=== PATIENT | female | born 1980 | race African-American/Black ===

== ENCOUNTER 2017-07-26 15:40 | Emergency (ER) | payer MEDICAID ==
--- NOTE | 2017-07-26 15:56 | EDM.PDOC ---
ED HPI GENERAL MEDICAL PROBLEM - General Chief Complaint: Medication Administration Stated Complaint: NOSE BLEED/HIGH PRESSURE Time Seen by Provider: 07/26/17 15:55 Source of Information: Reports: Patient History Limitations: Reports: No Limitations - History of Present Illness INITIAL COMMENTS - FREE TEXT/NARRATIVE: 37-year-old female presents to the ED for assessment of high blood pressure which she believes is precipitating recurrent headaches and nosebleeds. States she just got insurance and wants to have a refill on her hydrochlorothiazide 12.5 mg once daily which he uses for blood pressure control. Her blood pressure however is elevated at 140 8/112. Reading has been mostly from the left naris. Headache is bitemporal pounding and throbbing. She states she's been off her medication for about a month. Last time she was to the doctor she was advised to purchase a second blood pressure medication but was unable to do so due to financial barriers. She's not sure what this was. But obviously her blood pressure was not controlled well along with hydrochlorothiazide 12.5 mg daily. Onset: Unknown/Unsure (Has been for several days and weeks.) Duration: Week(s): Location: Reports: Head (Chronic bitemporal throbbing headaches.), Other ( Intermittent left nosebleed.) Quality: Reports: Ache Severity: Moderate Improves with: Reports: Cold Therapy, Rest Worsens with: Reports: Movement Context: Denies: Activity, Exercise, Lifting, Sick Contact, Trauma, Other Associated Symptoms: Reports: Headaches. 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) Frontal Headache Pain Score (Numeric/FACES): 4 - Related Data Allergies Allergy/AdvReac Type Severity Reaction Status Date / Time No Known Allergies Allergy Verified 07/26/17 15:49 Home Meds: Home Meds Hydrochlorothiazide 12.5 mg PO DAILY 07/26/17 [History] Lisinopril/Hydrochlorothiazide [Lisinopril-Hctz 20-25 mg Tab] 1 each PO DAILY # 30 tablet 07/26/17 [Rx] Past Medical History Cardiovascular History: Reports: Hypertension Hematologic History: Reports: Anemia, Blood Transfusion(s) - Past Surgical History GI Surgical History: Reports: Colonoscopy Social & Family History - Tobacco Use Smoking Status *Q: Current Some Day Smoker Years of Tobacco use: 30 Packs/Tins Daily: 0.3 Used Tobacco, but Quit: No Second Hand Smoke Exposure: No - Caffeine Use Caffeine Use: Reports: None - Recreational Drug Use Recreational Drug Use: No - Living Situation & Occupation Living situation: Reports: Single Occupation: Unemployed ED ROS GENERAL - Review of Systems Review Of Systems: See Below Constitutional: Denies: Fever, Chills, Malaise, Weakness, Decreased Appetite, Weight Loss HEENT: Reports: No Symptoms Respiratory: Reports: No Symptoms Cardiovascular: Reports: Blood Pressure Problem (Has had elevated blood pressure for several years.) Endocrine: Reports: No Symptoms ( It runs in her family.) GI/Abdominal: Reports: No Symptoms : Reports: No Symptoms Musculoskeletal: Reports: No Symptoms, Muscle Pain Neurological: Reports: No Symptoms ED EXAM, GENERAL - Physical Exam Exam: See Below Exam Limited By: No Limitations General Appearance: Alert, WD/WN, Mild Distress (Currently has quite a bad headache and bitemporal aspect of her scalp.) Eye Exam: Bilateral Eye: Normal Fundi (No flame hemorrhages. No AV nicking.) Respiratory/Chest: No Respiratory Distress, Lungs Clear, Normal Breath Sounds, No Accessory Muscle Use Cardiovascular: Normal Peripheral Pulses, Regular Rate, Rhythm, No Edema, No Gallop, No Murmur, No Rub Peripheral Pulses: 3+: Posterior Tibial (L), Posterior Tibial (R), Dorsalis Pedis (L), Dorsalis Pedis (R) Extremities: Normal Inspection, Normal Range of Motion, Non-Tender, No Pedal Edema Neurological: Alert, Oriented, CN II-XII Intact, Normal Cognition, Normal Gait Psychiatric: Normal Affect, Normal Mood Skin Exam: Warm, Dry, Intact, Normal Color, No Rash Course - Vital Signs Last Recorded V/S: Last Vital Signs Temp 37.1 C 07/26/17 15:47 Pulse 87 07/26/17 15:47 Resp 18 07/26/17 15:47 BP 148/112 H 07/26/17 15:47 Pulse Ox 100 07/26/17 15:47 - Radiology Interpretation Free Text/Narrative:: 37-year-old female of -[place] descent presents to the ED for review of elevated blood pressure and having been off her medication for over a month. She says suffering bitemporal throbbing headaches as well as intermittent nosebleeds which she believes is due to uncontrolled blood pressure. BP on arrival was 148/112. Her to rest it came down to 148/96. She does not have the finances to warrant a full investigation by lab work ECG etc. Therefore decision made to place her on lisinopril 20 mg with hydrochlorothiazide 12.5 mg as a combination tablet once daily. I spoke with her personal care physician in 2 weeks time for kidney evaluation. Also blood pressure review. Regarding her nose is been some bleeding from the inner aspect of the left nasal alae. This is very anterior. Suggest Polysporin ointment to this area by way of Q-tip at bedtime for the next week. Departure - Departure Time of Disposition: 16:30 Disposition: Home, Self-Care 01 Condition: Fair Clinical Impression: Uncontrolled hypertension, Epistaxis not due to trauma Chronic headaches Qualifiers: Headache type: unspecified - Discharge Information Prescriptions: Lisinopril/Hydrochlorothiazide [Lisinopril-Hctz 20-25 mg Tab] 1 each PO DAILY # 30 tablet Referrals: PCP,None [Primary Care Provider] - Forms: ED Department Discharge Additional Instructions: Evaluation the emergency room today in regards to persistent daily headaches and intermittent nosebleeds looks like from the left naris primarily. Uncontrolled hypertension which is known about for rate of time but unable to obtain medications due to financial barriers. Her pressure is elevated at 142/ 96 today. Therefore advised starting combination lisinopril 20 mg with hydrochlorothiazide 12.5 mg tablet within it. This is a 1 tablet once a day which dropped her blood pressure about 10 points of the top and bottom over the next 2 weeks. Should follow up with a provider in 2 weeks time. Regards tosuggest use of Polysporin ointment which is [id number] and to be applied to the inner aspect of the nose at bedtime for the next week to stop any further bleeding. Continue Tylenol or aspirin as needed for headache relief until blood pressure comes under control.
== END 2017-07-26 16:43 | disposition home or self-care (01) ==
LOC: JD.ED 15:40
DX: I10 Essential (primary) hypertension (principal); R04.0 Epistaxis; F17.210 Nicotine dependence, cigarettes, uncomplicated; Z79.899 Other long term (current) drug therapy
CPT/HCPCS: 99283

== ENCOUNTER 2017-08-05 00:30 | Emergency (ER) | payer MEDICAID ==
--- NOTE | 2017-08-05 00:41 | EDM.PDOC ---
ED HPI GENERAL MEDICAL PROBLEM - General Chief Complaint: Headache Stated Complaint: MIN AMBULANCE Time Seen by Provider: 08/05/17 00:40 Source of Information: Reports: Patient History Limitations: Reports: No Limitations - History of Present Illness INITIAL COMMENTS - FREE TEXT/NARRATIVE: 37-year-old female of -[place] descent presents to the ED per ambulance with a severe bitemporal headache 2 days. Associated nausea but she's been eating quite well the last few days. She is known to have hypertension and recently started back on antihypertensive medication hydrochlorothiazide 12.5 with lisinopril 20 mg once daily. This was started last week again. She been off medication due to financial barriers. He is not sure how her blood pressure has been since starting the medications. She denies any cervical neck pain. Headache is behind both eyes consistent. Scribed is pounding and throbbing. No change in visual acuity. She has no change in her balance. She states she is prone to migraine headaches but hasn't had a bad one for quite some time. No recent falls or closed head injuries. Has been primarily on bed rest for the last 2 days. Onset: Gradual Onset Date: 08/03/17 Duration: Day(s): Location: Reports: Head Quality: Reports: Ache, Pressure, Throbbing Severity: Severe (8 out of 10.) Improves with: Reports: Rest (Dark room and not moving) Worsens with: Reports: Other, Movement Context: Denies: Activity (Bright lights), Exercise, Lifting, Sick Contact, Trauma, Other Associated Symptoms: Reports: Headaches. 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) Headache Pain Score (Numeric/FACES): 8 - Related Data Allergies Allergy/AdvReac Type Severity Reaction Status Date / Time No Known Allergies Allergy Verified 08/05/17 00:36 Home Meds: Home Meds Lisinopril/Hydrochlorothiazide [Lisinopril-Hctz 20-25 mg Tab] 1 each PO DAILY # 30 tablet 07/26/17 [Rx] Past Medical History Cardiovascular History: Reports: Hypertension Hematologic History: Reports: Anemia, Blood Transfusion(s) - Past Surgical History GI Surgical History: Reports: Colonoscopy Social & Family History - Tobacco Use Smoking Status *Q: Current Some Day Smoker Years of Tobacco use: 30 Packs/Tins Daily: 0.3 Used Tobacco, but Quit: No Second Hand Smoke Exposure: No - Caffeine Use Caffeine Use: Reports: None - Recreational Drug Use Recreational Drug Use: No - Living Situation & Occupation Living situation: Reports: Single Occupation: Unemployed ED ROS GENERAL - Review of Systems Review Of Systems: See Below Constitutional: Reports: Malaise, Weakness, Fatigue. Denies: Fever, Chills, Weight Loss HEENT: Denies: Glasses, Vertigo, Vision Change Respiratory: Reports: No Symptoms Cardiovascular: Reports: Blood Pressure Problem (Recently started back on antihypertensive medication hydrochlorothiazide 12.5 with). Denies: Chest Pain , Claudication ( lisinopril 20 mg daily.), Edema, Lightheadedness, Orthopnea Endocrine: Reports: No Symptoms GI/Abdominal: Reports: Nausea (Due to the intensity of the headache. No vomiting ). Denies: Vomiting : Reports: Frequency Musculoskeletal: Reports: Back Pain Skin: Reports: No Symptoms Neurological: Reports: Headache (See history of present illness.). Denies: Numbness, Paresthesia, Pre-Existing Deficit, Seizure, Syncope, Tingling, Tremors , Trouble Speaking, Difficulty Walking, Weakness Psychiatric: Reports: No Symptoms Hematologic/Lymphatic: Reports: No Symptoms - Physical Exam Exam: See Below Exam Limited By: No Limitations General Appearance: Alert, WD/WN, Moderate Distress Eye Exam: Bilateral Eye: PERRL Respiratory/Chest: No Respiratory Distress, Lungs Clear, Normal Breath Sounds, No Accessory Muscle Use Cardiovascular: Normal Peripheral Pulses, Regular Rate, Rhythm, No Edema, No Gallop, No Murmur GI/Abdominal: Normal Bowel Sounds, Soft, Non-Tender, No Organomegaly Neuro Exam (Abbreviated): Alert, Oriented, CN II-XII Intact, Normal Cognition, Normal Gait, Normal Reflexes, No Motor/Sensory Deficits DTR: 1+: Achilles (R), Achilles (L), 2+: Bicep (R), Bicep (L), Patella (R), Patella (L) Extremities: Normal Inspection, Normal Range of Motion, Non-Tender, No Pedal Edema Psychiatric: Normal Affect, Flat Affect Skin Exam: Warm, Dry, Intact, Normal Color, No Rash Course - Vital Signs Last Recorded V/S: Last Vital Signs Temp 37.3 C 08/05/17 00:37 Pulse 82 08/05/17 00:37 Resp 17 08/05/17 00:37 BP 177/103 H 08/05/17 00:37 Pulse Ox 98 08/05/17 00:37 - Orders/Labs/Meds Labs: Laboratory Tests 08/05/17 Range/Units 01:03 Sodium 140 (136-145) mEq/L Potassium 3.6 (3.5-5.1) mEq/L Chloride 102 (98-107) mEq/L Carbon Dioxide 25 (21-32) mEq/L Anion Gap 16.6 H (5-15) BUN 7 (7-18) mg/dL Creatinine 0.9 (0.55-1.02) mg/dL Est Cr Clr Drug Dosing 66.10 mL/min Estimated GFR (MDRD) > 60 (>60) mL/min BUN/Creatinine Ratio 7.8 L (14-18) Glucose 99 (74-106) mg/dL Calcium 9.9 (8.5-10.1) mg/dL Total Bilirubin 0.2 (0.2-1.0) mg/dL AST 26 (15-37) U/L ALT 28 (14-59) U/L Alkaline Phosphatase 59 (46-116) U/L Total Protein 8.0 (6.4-8.2) g/dl Albumin 4.3 (3.4-5.0) g/dl Globulin 3.7 gm/dL Albumin/Globulin Ratio 1.2 (1-2) Meds: Medications Discontinued Medications Generic Name Dose Route Start Last Admin Trade Name Aguilarq PRN Reason Stop Dose Admin Diphenhydramine HCl 25 mg 08/05/17 00:48 08/05/17 01:12 Benadryl IVPUSH 08/05/17 00:49 25 mg ONETIME ONE Administration Hydromorphone HCl 0.5 mg 08/05/17 00:48 08/05/17 01:13 Dilaudid IVPUSH 08/05/17 00:49 0.5 mg ONETIME ONE Administration Sodium Chloride 1,000 mls @ 999 mls/hr 08/05/17 01:00 08/05/17 01:06 Normal Saline IV 999 mls/hr ASDIRECTED JORDI Administration Ketorolac Tromethamine 30 mg 08/05/17 01:00 08/05/17 01:10 Toradol IVPUSH 30 mg ONETIME JORDI Administration Metoclopramide HCl 7.5 mg 08/05/17 00:48 08/05/17 01:07 Reglan IVPUSH 08/05/17 00:49 7.5 mg ONETIME ONE Administration - Radiology Interpretation Free Text/Narrative:: 37-year-old female presents to the ED per ambulance due to a severe bitemporal headache. She states she is prone to migraine headaches but hasn't had one for some time. She is known to have uncontrolled hypertension but recently started back on antidepressant medication a week ago with lisinopril 20 mg/12.5 mg of hydrochlorothiazide daily. Associated nausea with no vomiting. Cranial nerves II -12 are intact motor power and tone is normal finger to nose assessment normal no pronator drift. I neuro exam is normal. Plan IV normal saline at open. Given Reglan 7.5 mg IV Benadryl 25 mg IV, Dilaudid 0.5 mg IV and Toradol 30 mg IV for pain relief. - Re-Assessments/Exams Free Text/Narrative Re-Assessment/Exam: 08/05/17 02:27 patient reports headache is 90% better. BP is currently 117/80. Labs are back. Sodium is 140 with a potassium of 3.6. Chloride 102 with a bicarbonate of 25. Anion gap is 16.6. BUN was 7 with a creatinine of 0.9. Glucose 99 calcium 9.9. Liver function normal. At this time there is no sign that the lisinopril is causing any problems with her kidneys or potassium levels. Patient will be discharged to home. I believe a taxi will be called for her to get her home. Departure - Departure Time of Disposition: 02:31 Disposition: Home, Self-Care 01 Condition: Fair Clinical Impression: Migraine - Discharge Information Instructions: Migraine Headache, [id number] Referrals: PCP,None [Primary Care Provider] - Forms: ED Department Discharge Additional Instructions: Evaluation the emergency room tonight in regards to bilateral severe headache 48 hours. Associated nausea without vomiting. Neurological examination was normal. Basic labs were obtained due to recent starting on lisinopril/ hydrochlorothiazide and they were all found to be normal. There was no abnormalities identified within the kidneys or serum potassium levels. You are treated with intravenous Dilaudid 0.5 mg Reglan 7.5 mg, and Toradol 30 mg IV with Benadryl 25 mg IV for acute headache and nausea relief. Headache reportedly 90% better at the time of discharge. Suggest home to bed to sleep for the next 4-6 hours. Resume plenty of fluids such as Gatorade or Powerade when you awaken to maintain hydration and resume diet as able. Of note blood pressure at the time of discharge was normal at 118/73.
[2017-08-05] MEDS ORDERED: HYDROmorphone 0.5 MG/0.5 ML SYRINGE IVPUSH ONE (00:48)
[2017-08-05] MEDS ORDERED: Metoclopramide 10 MG/2 ML SDV IVPUSH ONE (00:48)
[2017-08-05] MEDS ORDERED: diphenhydrAMINE 50 MG/ML SDV IVPUSH ONE (00:48)
[2017-08-05] MEDS ORDERED: Ketorolac 30 MG/ML SDV IVPUSH SCH (01:00)
[2017-08-05] MEDS ORDERED: Sodium Chloride 0.9% 1,000 ML IV SCH (01:00)
== END 2017-08-05 02:54 | disposition home or self-care (01) ==
LOC: JD.ED 00:30
DX: G43.909 Migraine, unspecified, not intractable, without status migrainosus (principal); I10 Essential (primary) hypertension; F17.210 Nicotine dependence, cigarettes, uncomplicated; Z79.899 Other long term (current) drug therapy
CPT/HCPCS: 36415; 80053; 96361; 96374; 96375; 99284; J1170; J1200; J1885; J2765; J7040

== ENCOUNTER 2017-10-14 13:00 | Emergency (ER) | payer MEDICAID ==
[2017-10-14] MEDS ORDERED: Sodium Chloride 0.9% 1,000 ML IV ONE (13:34)
[2017-10-14] MEDS ORDERED: Sodium Chloride 0.9% 10 ML Syringe FLUSH PRN (13:35)
--- NOTE | 2017-10-14 13:47 | EDM.PDOC ---
ED HPI GENERAL MEDICAL PROBLEM - General Chief Complaint: Headache Stated Complaint: HEAD PAIN Time Seen by Provider: 10/14/17 13:17 Source of Information: Reports: Patient History Limitations: Reports: No Limitations - History of Present Illness INITIAL COMMENTS - FREE TEXT/NARRATIVE: 37-year-old female presents for evaluation and treatment of injuries following a fall last night. Patient reports that she was attempting have a bowel movement last night. She was on the toilet. She states that she does not recall exactly what happened but she passed out. Unclear how long she was out for. Not witnessed by anybody. She states when she woke there was a puddle of water on the floor. There was a bucket by full of water when she feels is likely the source of this. She does not remember much. She states when she came to she felt confused and felt her vision was blurry. Since the fall she has had a headache to the right posterior parietal area. She denies biting her tongue. She has no history of seizures. No nausea or vomiting since the incident. She has been feeling dizzy but has not had any syncopal episodes since last night. Patient reports she used to have frequent syncopal episodes. No etiology was ever found. She also reports she used to get frequent anemia of unknown cause. Required blood transfusions. LAst transfusion was about 16 months ago. This all occurred in [place] and [place]. Moved to [place] about 6 months ago. No PCP here. Patient reports she just finished her LMP. posterior pain Pain Score (Numeric/FACES): 6 - Related Data Allergies Allergy/AdvReac Type Severity Reaction Status Date / Time No Known Allergies Allergy Verified 10/14/17 13:16 Home Meds: Home Meds Lisinopril/Hydrochlorothiazide [Lisinopril-Hctz 20-25 mg Tab] 1 each PO DAILY # 30 tablet 07/26/17 [Rx] Past Medical History HEENT History: Reports: Epistaxis Cardiovascular History: Reports: Hypertension Neurological History: Reports: Other (See Below) Other Neuro History: syncopal episodes Hematologic History: Reports: Anemia, Blood Transfusion(s) Other Hematologic History: hx blood transfusions, states usually needs one yearly - Past Surgical History GI Surgical History: Reports: Colonoscopy Social & Family History - Family History Family Medical History: Noncontributory - Tobacco Use Years of Tobacco use: 10 Packs/Tins Daily: 0.1 - Caffeine Use Caffeine Use: Reports: None - Recreational Drug Use Recreational Drug Use: No - Living Situation & Occupation Living situation: Reports: Single Occupation: Unemployed ED ROS GENERAL - Review of Systems Review Of Systems: See Below Constitutional: Denies: Fever, Chills HEENT: Reports: Vision Change (blurry vision initally, now resolved), Other (no tongue biting ). Denies: Dental Pain, Nosebleed Respiratory: Denies: Cough GI/Abdominal: Reports: Constipation (h/o constipation and blood in stool; none recently, last BM yesterday), Hematochezia. Denies: Nausea, Vomiting Musculoskeletal: Denies: Neck Pain Neurological: Reports: Dizziness, Headache (none prior to fall), Syncope (none since episode last night). Denies: Numbness, Seizure, Tingling - Physical Exam Exam: See Below Exam Limited By: No Limitations General Appearance: Alert, WD/WN, No Apparent Distress, Thin Eye Exam: Bilateral Eye: EOMI, Normal Inspection, PERRL Ears: Normal External Exam Nose: Normal Inspection, No Blood Throat/Mouth: Normal Inspection, Normal Lips, Normal Teeth, Normal Oropharynx, Normal Voice, No Airway Compromise Head Exam: Atraumatic, Normocephalic Neck: Normal Inspection, Non-Tender, Full Range of Motion Respiratory/Chest: No Respiratory Distress, Lungs Clear, Normal Breath Sounds Cardiovascular: Normal Peripheral Pulses, Regular Rate, Rhythm, No Murmur GI/Abdominal: Normal Bowel Sounds, Soft, Non-Tender Neuro Exam (Abbreviated): Alert, Oriented, CN II-XII Intact, Normal Cognition Psychiatric: Normal Affect, Normal Mood Skin Exam: Warm, Dry, Normal Color EKG INTERPRETATION EKG Date: 10/14/17 Time: 14:15 Rhythm: NSR Rate (Beats/Min): 71 [place]: Normal P-Wave: Present QRS: Normal ST-T: Normal QT: Normal EKG Interpretation Comments: NSR at 71 bpm. No acute changes. Reviewed by myself and Dr. Mas. Course - Vital Signs Last Recorded V/S: Last Vital Signs Temp 98.5 F 10/14/17 13:08 Pulse 72 10/14/17 15:50 Resp 18 10/14/17 15:50 BP 121/85 10/14/17 15:50 Pulse Ox 100 10/14/17 15:50 Orthostatic Blood Pressure [ 121/95 Standing] Orthostatic Blood Pressure [ 117/84 Sitting] Orthostatic Blood Pressure [ 117/72 Supine] - Orders/Labs/Meds Orders: Active Orders 24 hr Category Date Time Status EKG Documentation Completion [RC] ASDIRECTED Care 10/14/17 13:35 Active Orthostatic Vital Signs [RC] ASDIRECTED Care 10/14/17 13:35 Active Peripheral IV Care [RC] . DIRECTED Care 10/14/17 13:35 Active DRUG SCREEN, URINE [URCHEM] Stat Lab 10/14/17 13:50 Ordered UA W/MICROSCOPIC [URIN] Stat Lab 10/14/17 13:58 Ordered Peripheral IV Insertion Adult [OM.PC] Routine Oth 10/14/17 13:34 Ordered EKG 12 Lead [EK] Stat Ther 10/14/17 13:35 Ordered Labs: Laboratory Tests 10/14/17 10/14/17 10/14/17 Range/Units 13:50 13:50 13:58 WBC (3.98-10.04) K/mm3 RBC (3.98-5.22) M/mm3 Hgb (11.2-15.7) gm/L Hct (34.1-44.9) % MCV (79.4-94.8) fl MCH (25.6-32.2) pg MCHC (32.2-35.5) g/dl RDW Std Deviation (36.4-46.3) fL Plt Count (182-369) K/mm3 MPV (9.4-12.3) fl Neut % (Auto) (34.0-71.1) % Lymph % (Auto) (19.3-51.7) % [place] % (Auto) (4.7-12.5) % Eos % (Auto) (0.7-5.8) Baso % (Auto) (0.1-1.2) % Neut # (Auto) (1.56-6.13) K/mm3 Lymph # (Auto) (1.18-3.74) K/mm3 [place] # (Auto) (0.24-0.36) K/mm3 Eos # (Auto) (0.04-0.36) K/mm3 Baso # (Auto) (0.01-0.08) K/mm3 Sodium (136-145) mEq/L Potassium (3.5-5.1) mEq/L Chloride (98-107) mEq/L Carbon Dioxide (21-32) mEq/L Anion Gap (5-15) BUN (7-18) mg/dL Creatinine (0.55-1.02) mg/dL Est Cr Clr Drug Dosing mL/min Estimated GFR (MDRD) (>60) mL/min BUN/Creatinine Ratio (14-18) Glucose (74-106) mg/dL Calcium (8.5-10.1) mg/dL Total Bilirubin (0.2-1.0) mg/dL AST (15-37) U/L ALT (14-59) U/L Alkaline Phosphatase (46-116) U/L Total Protein (6.4-8.2) g/dl Albumin (3.4-5.0) g/dl Globulin gm/dL Albumin/Globulin Ratio (1-2) HCG, Qual Negative (NEGATIVE) Urine Color Yellow (Yellow) Urine Appearance Slt cloudy H (Clear) Urine pH 7.5 (5.0-8.0) Ur Specific [place] 1.025 (1.005-1.030) Urine Protein 1+ H (Negative) Urine Glucose (UA) Negative (Negative) Urine Ketones Negative (Negative) Urine Occult Blood Negative (Negative) Urine Nitrite Negative (Negative) Urine Bilirubin Negative (Negative) Urine Urobilinogen 0.2 (0.2-1.0) Ur Leukocyte Esterase Negative (Negative) Urine RBC 0-5 (0-5) /hpf Urine WBC 0-5 (0-5) /hpf Ur Epithelial Cells 5-10 H (0-5) /hpf Urine Bacteria Few (FEW) /hpf Urine Mucus Moderate H (FEW) /hpf Urine Opiates Screen Negative (NEGATIVE) Ur Buprenorphine Scrn Negative (NEGATIVE) Ur Oxycodone Screen Negative (NEGATIVE) Urine Methadone Screen Negative (NEGATIVE) Ur Propoxyphene Screen Negative (NEGATIVE) Ur Barbiturates Screen Negative (NEGATIVE) Ur Tricyclics Screen Negative (NEGATIVE) Ur Phencyclidine Scrn Negative (NEGATIVE) Ur Amphetamine Screen Negative (NEGATIVE) U Methamphetamines Scrn Negative (NEGATIVE) U Benzodiazepines Scrn Negative (NEGATIVE) U Cocaine Metab Screen Negative (NEGATIVE) U Marijuana (THC) Screen Presumptive positive H (NEGATIVE) Ethyl Alcohol (0.00) gm% 10/14/17 10/14/17 Range/Units 14:00 14:00 WBC 4.14 (3.98-10.04) K/mm3 RBC 4.49 (3.98-5.22) M/mm3 Hgb 11.2 (11.2-15.7) gm/L Hct 35.8 (34.1-44.9) % MCV 79.7 (79.4-94.8) fl MCH 24.9 L (25.6-32.2) pg MCHC 31.3 L (32.2-35.5) g/dl RDW Std Deviation 52.7 H (36.4-46.3) fL Plt Count 280 (182-369) K/mm3 MPV 10.1 (9.4-12.3) fl Neut % (Auto) 57.3 (34.0-71.1) % Lymph % (Auto) 30.2 (19.3-51.7) % [place] % (Auto) 10.9 (4.7-12.5) % Eos % (Auto) 1.2 (0.7-5.8) Baso % (Auto) 0.2 (0.1-1.2) % Neut # (Auto) 2.37 (1.56-6.13) K/mm3 Lymph # (Auto) 1.25 (1.18-3.74) K/mm3 [place] # (Auto) 0.45 H (0.24-0.36) K/mm3 Eos # (Auto) 0.05 (0.04-0.36) K/mm3 Baso # (Auto) 0.01 (0.01-0.08) K/mm3 Sodium 143 (136-145) mEq/L Potassium 3.4 L (3.5-5.1) mEq/L Chloride 105 (98-107) mEq/L Carbon Dioxide 30 (21-32) mEq/L Anion Gap 11.4 (5-15) BUN 13 (7-18) mg/dL Creatinine 1.1 H (0.55-1.02) mg/dL Est Cr Clr Drug Dosing 49.17 mL/min Estimated GFR (MDRD) > 60 (>60) mL/min BUN/Creatinine Ratio 11.8 L (14-18) Glucose 82 (74-106) mg/dL Calcium 9.6 (8.5-10.1) mg/dL Total Bilirubin 0.2 (0.2-1.0) mg/dL AST 20 (15-37) U/L ALT 17 (14-59) U/L Alkaline Phosphatase 49 (46-116) U/L Total Protein 7.6 (6.4-8.2) g/dl Albumin 3.8 (3.4-5.0) g/dl Globulin 3.8 gm/dL Albumin/Globulin Ratio 1.0 (1-2) HCG, Qual (NEGATIVE) Urine Color (Yellow) Urine Appearance (Clear) Urine pH (5.0-8.0) Ur Specific [place] (1.005-1.030) Urine Protein (Negative) Urine Glucose (UA) (Negative) Urine Ketones (Negative) Urine Occult Blood (Negative) Urine Nitrite (Negative) Urine Bilirubin (Negative) Urine Urobilinogen (0.2-1.0) Ur Leukocyte Esterase (Negative) Urine RBC (0-5) /hpf Urine WBC (0-5) /hpf Ur Epithelial Cells (0-5) /hpf Urine Bacteria (FEW) /hpf Urine Mucus (FEW) /hpf Urine Opiates Screen (NEGATIVE) Ur Buprenorphine Scrn (NEGATIVE) Ur Oxycodone Screen (NEGATIVE) Urine Methadone Screen (NEGATIVE) Ur Propoxyphene Screen (NEGATIVE) Ur Barbiturates Screen (NEGATIVE) Ur Tricyclics Screen (NEGATIVE) Ur Phencyclidine Scrn (NEGATIVE) Ur Amphetamine Screen (NEGATIVE) U Methamphetamines Scrn (NEGATIVE) U Benzodiazepines Scrn (NEGATIVE) U Cocaine Metab Screen (NEGATIVE) U Marijuana (THC) Screen (NEGATIVE) Ethyl Alcohol 0.00 (0.00) gm% Meds: Medications Discontinued Medications Generic Name Dose Route Start Last Admin Trade Name Freq PRN Reason Stop Dose Admin Sodium Chloride 1,000 mls @ 999 mls/hr 10/14/17 13:34 10/14/17 14:21 Normal Saline IV 10/14/17 14:34 999 mls/hr ONETIME ONE Administration Ketorolac Tromethamine 30 mg 10/14/17 14:34 10/14/17 14:48 Toradol IVPUSH 10/14/17 14:35 30 mg ONETIME ONE Administration Sodium Chloride 10 ml 10/14/17 13:35 10/14/17 14:50 Saline Flush FLUSH 10 ml ASDIRECTED PRN Administration Keep Vein Open - Radiology Interpretation Free Text/Narrative:: Head CT Technique: Multiple axial sections through the brain were obtained. Intravenous contrast was not utilized. Comparison: No previous intracranial imaging. Findings: Ventricles along with basal cisterns and sulci over convexities are within normal limits for the patient's age. No abnormal parenchymal densities are seen. No evidence of intracranial hemorrhage. No midline shift or mass effect is seen. Visualized sinuses are clear. No acute calvarial abnormality is seen. Impression: 1. No acute intracranial abnormality is identified on noncontrast head CT exam. - Re-Assessments/Exams Free Text/Narrative Re-Assessment/Exam: 10/14/17 15:32 Reviewed the labs, imaging and ekg with the patient. She is anxious to go at this time. Denies any current headache states her head is sore from the fall. No etiology for the syncopal episode found today. Recommend establishing/following up with primary care. Discharge instructions as documented. Departure - Departure Time of Disposition: 15:36 Disposition: Home, Self-Care 01 Condition: Good Clinical Impression: Fall, Headache - Discharge Information Instructions: General Headache Without Cause Referrals: PCP,None [Primary Care Provider] - Gladys Molina MD [Physician] - Forms: ED Department Discharge Additional Instructions: [id number] Tylenol or Motrin as needed for pain. Recommend establishing with a primary care provider here [place]. Recommend Dr. Molina at the [facility]. Call [phone] to schedule with her. Recommend follow-up within 2 weeks for recheck of your symptoms. make sure you are drinking plenty of fluids. Rest. Please return to the ER if your symptoms change or worsen. - My Orders Last 24 Hours: My Active Orders 10/14/17 13:34 Peripheral IV Insertion Adult [OM.PC] Routine 10/14/17 13:35 EKG Documentation Completion [RC] ASDIRECTED Orthostatic Vital Signs [RC] ASDIRECTED Peripheral IV Care [RC] . DIRECTED EKG 12 Lead [EK] Stat 10/14/17 13:50 DRUG SCREEN, URINE [URCHEM] Stat 10/14/17 13:58 UA W/MICROSCOPIC [URIN] Stat - Assessment/Plan Last 24 Hours: My Active Orders 10/14/17 13:34 Peripheral IV Insertion Adult [OM.PC] Routine 10/14/17 13:35 EKG Documentation Completion [RC] ASDIRECTED Orthostatic Vital Signs [RC] ASDIRECTED Peripheral IV Care [RC] . DIRECTED EKG 12 Lead [EK] Stat 10/14/17 13:50 DRUG SCREEN, URINE [URCHEM] Stat 10/14/17 13:58 UA W/MICROSCOPIC [URIN] Stat
--- NOTE | 2017-10-14 13:59 | CT ---
Head CT Technique: Multiple axial sections through the brain were obtained. Intravenous contrast was not utilized. Comparison: No previous intracranial imaging. Findings: Ventricles along with basal cisterns and sulci over convexities are within normal limits for the patient's age. No abnormal parenchymal densities are seen. No evidence of intracranial hemorrhage. No midline shift or mass effect is seen. Visualized sinuses are clear. No acute calvarial abnormality is seen. Impression: 1. No acute intracranial abnormality is identified on noncontrast head CT exam. Diagnostic code #1
[2017-10-14] MEDS ORDERED: Ketorolac 30 MG/ML SDV IVPUSH ONE (14:34)
== END 2017-10-14 15:50 | disposition home or self-care (01) ==
LOC: JD.ED 13:00
DX: R51 Headache (principal); I10 Essential (primary) hypertension; W19.XXXA Unspecified fall, initial encounter
CPT/HCPCS: 36415; 70450; 80053; 80306; 81001; 84703; 85025; 93005; 96361; 96374; 99285; G0480; J1885; J7040; J7050; 99284

== ENCOUNTER 2017-12-14 20:08 | Emergency (ER) | payer MEDICAID ==
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
== END 2017-12-14 21:20 | disposition home or self-care (01) ==
LOC: JD.ED 20:08
DX: T24.002A Burn of unspecified degree of unspecified site of left lower limb, except ankle and foot, initial encounter (principal); X19.XXXA Contact with other heat and hot substances, initial encounter
CPT/HCPCS: 99283; 99284

== ENCOUNTER 2018-01-04 10:40 | Emergency (ER) | payer MEDICAID ==
[2018-01-04] MEDS ORDERED: Sodium Chloride 0.9% 10 ML Syringe FLUSH PRN (11:07)
[2018-01-04] MEDS ORDERED: Ketorolac 30 MG/ML SDV IVPUSH ONE (11:07)
[2018-01-04] MEDS ORDERED: diphenhydrAMINE 50 MG/ML SDV IVPUSH ONE (11:08)
[2018-01-04] MEDS ORDERED: Prochlorperazine 10 MG/2 ML SDV IVPUSH ONE (11:09)
--- NOTE | 2018-01-04 11:22 | EDM.PDOC ---
ED HPI GENERAL MEDICAL PROBLEM - General Chief Complaint: Headache Stated Complaint: HEADACHE Time Seen by Provider: 01/04/18 10:41 Source of Information: Reports: Patient History Limitations: Reports: No Limitations - History of Present Illness INITIAL COMMENTS - FREE TEXT/NARRATIVE: The patient presents with a headache. This started a few days ago. She ran out of her lisinopril/HCTZ over a week ago. She has been working a lot and cannot get in to get a refill. She has been getting headaches on and off for a few weeks. She has no blurred vision, double vision, nausea, vomiting, numbness , weakness, fever or chills. She has no other medical problems. Onset: Gradual Duration: Day(s): (2) Location: Reports: Head Quality: Reports: Sharp Severity: Severe Improves with: Reports: None Worsens with: Reports: None Associated Symptoms: Reports: Headaches. Denies: Chest Pain, Cough, Fever/ Chills, Nausea/Vomiting, Shortness of Breath Headache Pain Score (Numeric/FACES): 8 - Related Data Allergies Allergy/AdvReac Type Severity Reaction Status Date / Time No Known Allergies Allergy Verified 01/04/18 10:56 Home Meds: Home Meds Lisinopril/Hydrochlorothiazide [Lisinopril-Hctz 20-25 mg Tab] 1 each PO DAILY # 30 tablet 07/26/17 [Rx] Lisinopril/Hydrochlorothiazide [Lisinopril-Hctz 20-25 mg Tab] 1 each PO DAILY # 30 tablet 01/04/18 [Rx] Pnv No.122/Iron/Folic Acid [ Multi Tablet] 1 tab PO DAILY 01/04/18 [ History] Past Medical History HEENT History: Reports: Epistaxis, Other (See Below) Other HEENT History: dental abcess Cardiovascular History: Reports: Hypertension Neurological History: Reports: Other (See Below) Other Neuro History: syncopal episodes Hematologic History: Reports: Anemia, Blood Transfusion(s) Other Hematologic History: hx blood transfusions, states usually needs one yearly - Past Surgical History GI Surgical History: Reports: Colonoscopy Social & Family History - Family History Family Medical History: Noncontributory - Tobacco Use Smoking Status *Q: Current Some Day Smoker Years of Tobacco use: 5 Packs/Tins Daily: 0 - Caffeine Use Caffeine Use: Reports: None - Recreational Drug Use Recreational Drug Use: No - Living Situation & Occupation Living situation: Reports: Single Occupation: Unemployed ED ROS GENERAL - Review of Systems Review Of Systems: See Below Constitutional: Reports: No Symptoms HEENT: Reports: No Symptoms Respiratory: Reports: No Symptoms Cardiovascular: Reports: No Symptoms Endocrine: Reports: No Symptoms GI/Abdominal: Reports: No Symptoms : Reports: No Symptoms Musculoskeletal: Reports: No Symptoms Neurological: Reports: Headache - Physical Exam Exam: See Below Exam Limited By: No Limitations General Appearance: Alert, No Apparent Distress Ears: Normal External Exam Nose: Normal Inspection Head Exam: Atraumatic, Normocephalic Neck: Normal Inspection Respiratory/Chest: No Respiratory Distress, Lungs Clear, Normal Breath Sounds Cardiovascular: Regular Rate, Rhythm, No Edema, No Murmur GI/Abdominal: Soft, Non-Tender, No Organomegaly, No Mass Neuro Exam (Abbreviated): Alert, Oriented, No Motor/Sensory Deficits Course - Vital Signs Last Recorded V/S: Last Vital Signs Temp 98.8 F 01/04/18 10:53 Pulse 84 01/04/18 10:53 Resp 16 01/04/18 10:53 BP 141/106 H 01/04/18 10:53 Pulse Ox 100 01/04/18 10:53 - Orders/Labs/Meds Orders: Active Orders 24 hr Category Date Time Status Peripheral IV Care [RC] . DIRECTED Care 01/04/18 11:07 Active Sodium Chloride 0.9% [Saline Flush] Med 01/04/18 11:07 Active 10 ml FLUSH ASDIRECTED PRN Peripheral IV Insertion Adult [OM.PC] Routine Oth 01/04/18 11:07 Ordered Medication Orders Sodium Chloride (Saline Flush) 10 ml FLUSH ASDIRECTED PRN PRN Reason: Keep Vein Open Meds: Medications Generic Name Dose Route Start Last Admin Trade Name Freq PRN Reason Stop Dose Admin Sodium Chloride 10 ml 01/04/18 11:07 Saline Flush FLUSH ASDIRECTED PRN Keep Vein Open Discontinued Medications Generic Name Dose Route Start Last Admin Trade Name Freq PRN Reason Stop Dose Admin Diphenhydramine HCl 50 mg 01/04/18 11:08 Benadryl IVPUSH 01/04/18 11:09 ONETIME ONE Ketorolac Tromethamine 30 mg 01/04/18 11:07 Toradol IVPUSH 01/04/18 11:08 ONETIME ONE Prochlorperazine Edisylate 10 mg 01/04/18 11:09 Compazine IVPUSH 01/04/18 11:10 ONETIME ONE - Re-Assessments/Exams Free Text/Narrative Re-Assessment/Exam: 01/04/18 11:25 I ordered an IV saline lock, compazine 10mg IV, benadryl 50mg IV, and toradol 30mg IV. Departure - Departure Time of Disposition: 11:55 Disposition: Home, Self-Care 01 Condition: Good Clinical Impression: Headache Qualifiers: Headache type: unspecified Headache chronicity pattern: acute headache Intractability: not intractable Qualified Code(s): R51 - Headache Hypertension Qualifiers: Hypertension type: unspecified Qualified Code(s): I10 - Essential (primary) hypertension - Discharge Information *PRESCRIPTION DRUG MONITORING PROGRAM REVIEWED*: No *COPY OF PRESCRIPTION DRUG MONITORING REPORT IN PATIENT VALENCIA: No Prescriptions: Lisinopril/Hydrochlorothiazide [Lisinopril-Hctz 20-25 mg Tab] 1 each PO DAILY # 30 tablet Referrals: PCP,None [Primary Care Provider] - Rand Alejo NP [ED Midlevel Provider] - 1 Week Additional Instructions: Go home and rest in a quiet, dark room. Take the lisinopril/HCTZ daily. Follow up with Rand Alejo in 1 week to establish care. Please return if you are worse. - My Orders Last 24 Hours: My Active Orders 01/04/18 11:07 Peripheral IV Care [RC] . DIRECTED Sodium Chloride 0.9% [Saline Flush] 10 ml FLUSH ASDIRECTED PRN Peripheral IV Insertion Adult [OM.PC] Routine - Assessment/Plan Last 24 Hours: My Active Orders 01/04/18 11:07 Peripheral IV Care [RC] . DIRECTED Sodium Chloride 0.9% [Saline Flush] 10 ml FLUSH ASDIRECTED PRN Peripheral IV Insertion Adult [OM.PC] Routine
== END 2018-01-04 13:10 | disposition home or self-care (01) ==
LOC: JD.ED 10:40
DX: R51 Headache (principal); I10 Essential (primary) hypertension; F17.210 Nicotine dependence, cigarettes, uncomplicated
CPT/HCPCS: 96374; 96375; 99284; J0780; J1200; J1885; J7050

== ENCOUNTER 2018-01-30 11:04 | Emergency (ER) | payer MEDICAID ==
--- NOTE | 2018-01-30 11:28 | EDM.PDOC ---
ED HPI GENERAL MEDICAL PROBLEM - General Chief Complaint: Cardiovascular Problem Stated Complaint: LIGHT HEADED AND SOB Time Seen by Provider: 01/30/18 11:28 Source of Information: Reports: Patient - History of Present Illness INITIAL COMMENTS - FREE TEXT/NARRATIVE: Patient is here for evaluation of weakness and occasional shortness of breath. She states that this is a chronic issue but was a little bit worse this morning. She has a history of anemia. No history of cardiac or pulmonary disease. Saw [facility] yesterday for her exam and was referred to myself in clinic and has appointment scheduled for Friday. Patient reports a possible previous diagnosis of sickle cell she is unsure. She has a history of anemia, she states that she has had EGD and colonoscopy within the last year for this and both were normal. She does been eating and drinking well. Have breakfast this morning. Denies any chest pain or dyspnea currently. Denies nausea or vomiting. Overall just feels weak and tired. She has had blood transfusions previously. She has been prescribed iron but has not been taking this. Also has had a previous history of iron infusions, last one over a year ago. - Related Data Allergies Allergy/AdvReac Type Severity Reaction Status Date / Time No Known Allergies Allergy Verified 01/30/18 11:17 Home Meds: Home Meds Lisinopril/Hydrochlorothiazide [Lisinopril-Hctz 20-25 mg Tab] 1 each PO DAILY # 30 tablet 01/04/18 [Rx] Pnv No.122/Iron/Folic Acid [ Multi Tablet] 1 tab PO DAILY 01/04/18 [ History] Past Medical History HEENT History: Reports: Epistaxis, Other (See Below) Other HEENT History: dental abcess Cardiovascular History: Reports: Hypertension Neurological History: Reports: Other (See Below) Other Neuro History: syncopal episodes Hematologic History: Reports: Anemia, Blood Transfusion(s) Other Hematologic History: hx blood transfusions, states usually needs one yearly - Past Surgical History GI Surgical History: Reports: Colonoscopy Social & Family History - Family History Family Medical History: Noncontributory - Tobacco Use Smoking Status *Q: Current Some Day Smoker Years of Tobacco use: 5 Packs/Tins Daily: 0.1 - Caffeine Use Caffeine Use: Reports: None - Recreational Drug Use Recreational Drug Use: No - Living Situation & Occupation Living situation: Reports: Single Occupation: Unemployed ED ROS GENERAL - Review of Systems Review Of Systems: See Below Constitutional: Reports: Weakness, Fatigue HEENT: Reports: No Symptoms Respiratory: Reports: Shortness of Breath. Denies: Wheezing, Pleuritic Chest Pain, Cough, Sputum Cardiovascular: Reports: No Symptoms GI/Abdominal: Reports: No Symptoms : Reports: No Symptoms Skin: Reports: No Symptoms Neurological: Reports: Syncope (History of syncope, last episode was a couple months ago. Near syncope today.). Denies: Confusion, Dizziness, Headache, Seizure, Trouble Speaking, Change in Speech, Gait Disturbance Psychiatric: Reports: No Symptoms ED EXAM, GENERAL - Physical Exam Exam: See Below Exam Limited By: No Limitations General Appearance: Alert, WD/WN, No Apparent Distress Eye Exam: Bilateral Eye: PERRL Ears: Normal External Exam, Normal Canal, Normal TMs Throat/Mouth: Normal Inspection, Normal Oropharynx Head: Atraumatic, Normocephalic, Sinus Tenderness Neck: Normal Inspection, Supple, Non-Tender Respiratory/Chest: No Respiratory Distress, Lungs Clear, Normal Breath Sounds, No Accessory Muscle Use Cardiovascular: Normal Peripheral Pulses, Regular Rate, Rhythm, No Murmur GI/Abdominal: Normal Bowel Sounds, Soft, Non-Tender, Other (No hepatosplenomegaly) Neurological: Alert, Oriented Psychiatric: Normal Affect, Normal Mood Skin Exam: Warm, Dry, Intact EKG INTERPRETATION EKG Date: 01/30/18 Time: 12:15 Rhythm: NSR Rate (Beats/Min): 93 Course - Vital Signs Last Recorded V/S: Last Vital Signs Temp 98.8 F 01/30/18 11:15 Pulse 99 01/30/18 11:15 Resp 18 01/30/18 11:15 BP 102/87 01/30/18 11:15 Pulse Ox 100 01/30/18 11:15 - Orders/Labs/Meds Orders: Active Orders 24 hr Category Date Time Status EKG 12 Lead [EKG Documentation Completion] [RC] STAT Care 01/30/18 11:50 Active Sodium Chloride 0.9% [Saline Flush] Med 01/30/18 11:51 Active 10 ml FLUSH ASDIRECTED PRN Saline Lock Insert [OM.PC] Routine Oth 01/30/18 11:51 Ordered Medication Orders Sodium Chloride (Saline Flush) 10 ml FLUSH ASDIRECTED PRN PRN Reason: Keep Vein Open Last Admin: 01/30/18 12:31 Dose: 10 ml Labs: Laboratory Tests 01/30/18 01/30/18 01/30/18 Range/Units 12:00 12:00 12:00 WBC 4.08 (3.98-10.04) K/mm3 RBC 4.66 (3.98-5.22) M/mm3 Hgb 10.3 L (11.2-15.7) gm/L Hct 33.8 L (34.1-44.9) % MCV 72.5 L (79.4-94.8) fl MCH 22.1 L (25.6-32.2) pg MCHC 30.5 L (32.2-35.5) g/dl RDW Std Deviation 46.9 H (36.4-46.3) fL Plt Count 468 H (182-369) K/mm3 MPV 9.8 (9.4-12.3) fl Neutrophils % (Manual) 43 (40-60) % Band Neutrophils % 0 (0-10) % Lymphocytes % (Manual) 43 H (20-40) % Atypical Lymphs % 0 % Monocytes % (Manual) 10 (2-10) % Eosinophils % (Manual) 2 (0.7-5.8) % Basophils % (Manual) 2 H (0.1-1.2) Toxic Granulation 1+ slight Platelet Estimate Increased Plt Morphology Comment Normal Microcytosis Moderate RBC Morph Comment Not Reportable Sodium 141 (136-145) mEq/L Potassium 3.4 L (3.5-5.1) mEq/L Chloride 103 (98-107) mEq/L Carbon Dioxide 31 (21-32) mEq/L Anion Gap 10.4 (5-15) BUN 8 (7-18) mg/dL Creatinine 1.1 H (0.55-1.02) mg/dL Est Cr Clr Drug Dosing 55.56 mL/min Estimated GFR (MDRD) > 60 (>60) mL/min BUN/Creatinine Ratio 7.3 L (14-18) Glucose 84 (74-106) mg/dL Calcium 9.3 (8.5-10.1) mg/dL Iron 22 L (50-170) ug/dL Total Bilirubin 0.4 (0.2-1.0) mg/dL AST 27 (15-37) U/L ALT 31 (14-59) U/L Alkaline Phosphatase 63 (46-116) U/L Total Protein 8.4 H (6.4-8.2) g/dl Albumin 4.1 (3.4-5.0) g/dl Globulin 4.3 gm/dL Albumin/Globulin Ratio 1.0 (1-2) Meds: Medications Generic Name Dose Route Start Last Admin Trade Name Freq PRN Reason Stop Dose Admin Sodium Chloride 10 ml 01/30/18 11:51 01/30/18 12:31 Saline Flush FLUSH 10 ml ASDIRECTED PRN Administration Keep Vein Open - Re-Assessments/Exams Free Text/Narrative Re-Assessment/Exam: Exam is unremarkable. Hemoglobin is up to 10.3 from 9.1 2 days ago. CXR unremarkable, O2 100% on room air. EKG demonstrates NSR with rate of 93. TSH 01/28 was 0.889 and free T4 0.83. Sickle cell is pending from the clinic. 01/30/18 13:00 Fatigue likely related to her anemia, however hemoglobin is rising. Will start oral liquid iron supplement. She'll come in Friday for Venofer infusion. She' ll follow-up in the clinic on Friday as previously scheduled. 01/30/18 14:52 Departure - Departure Time of Disposition: 13:30 Disposition: Home, Self-Care 01 Condition: Good Clinical Impression: Iron deficiency anemia Qualifiers: Iron deficiency anemia type: unspecified iron deficiency Qualified Code(s): D50.9 - Iron deficiency anemia, unspecified Instructions: Anemia Referrals: Henrry Valdez PA [Emergency Provider] - Forms: ED Department Discharge Additional Instructions: Come in Friday morning for your iron infusion, check on hospital side Continue to eat and drink well over the weekend Start oral iron supplement Laineyum, prescription for this was sent to [facility] [place]. Follow-up in clinic Friday as scheduled or return to ER if any new or worsening symptoms. - My Orders Last 24 Hours: My Active Orders 01/30/18 11:50 EKG 12 Lead [EKG Documentation Completion] [RC] STAT 01/30/18 11:51 Sodium Chloride 0.9% [Saline Flush] 10 ml FLUSH ASDIRECTED PRN Saline Lock Insert [OM.PC] Routine - Assessment/Plan Last 24 Hours: My Active Orders 01/30/18 11:50 EKG 12 Lead [EKG Documentation Completion] [RC] STAT 01/30/18 11:51 Sodium Chloride 0.9% [Saline Flush] 10 ml FLUSH ASDIRECTED PRN Saline Lock Insert [OM.PC] Routine
[2018-01-30] MEDS ORDERED: Sodium Chloride 0.9% 10 ML Syringe FLUSH PRN (11:51)
--- NOTE | 2018-01-30 13:16 | CR ---
Chest: Two views of the chest were obtained. Comparison: No prior chest x-ray. Heart size and mediastinum are normal. Lungs are clear. Bony structures appear within normal limits. Impression: 1. Nothing acute is seen on two-view chest x-ray. Diagnostic code #1
== END 2018-01-30 14:00 | disposition home or self-care (01) ==
LOC: JD.ED 11:04
DX: D50.9 Iron deficiency anemia, unspecified (principal); F17.210 Nicotine dependence, cigarettes, uncomplicated; I10 Essential (primary) hypertension; Z79.899 Other long term (current) drug therapy
CPT/HCPCS: 36415; 71046; 80053; 83540; 85007; 85027; 93005; 99284; J7050; 93010

== ENCOUNTER 2018-02-02 12:48 | Emergency (ER) | payer MEDICAID ==
[2018-02-02] MEDS ORDERED: Sodium Chloride 0.9% 10 ML Syringe FLUSH PRN (13:50)
[2018-02-02] MEDS ORDERED: diphenhydrAMINE 50 MG/ML SDV IVPUSH ONE (13:50)
[2018-02-02] MEDS ORDERED: Sodium Chloride 0.9% 1,000 ML IV ONE (13:52)
[2018-02-02] MEDS ORDERED: Ondansetron 4 MG/2 ML SDV IVPUSH ONE (14:20)
--- NOTE | 2018-02-02 15:30 | EDM.PDOC ---
ED HPI GENERAL MEDICAL PROBLEM - General Chief Complaint: Allergic Reaction Stated Complaint: POSSIBLE REACTION TO INFUSION Time Seen by Provider: 02/02/18 13:35 Source of Information: Reports: Patient History Limitations: Reports: No Limitations - History of Present Illness INITIAL COMMENTS - FREE TEXT/NARRATIVE: 37-year-old female presents for evaluation and treatment of possible allergic reaction. Patient reports she was over at the outpatient infusion center receiving iron transfusion. She's had this multiple times before. She reports that one of the nurses applied a topical lidocaine prior to getting the IV. This seemed to cause her reaction in her opinion. She reports a reaction started while she was receiving the infusion start with numbness and tingling in her feet. She is now reports that her left arm is swollen and she feels numbness and tingling to the bilateral arms as well. The feet seem to resolve. They were initially swollen as well with a is also improved. She reports feeling short of breath. No throat swelling. She reports feeling itchy but has not appreciated any hives. Patient reports a history of deficiency anemia. She is on vitamins with iron supplementation but not a specific iron supplement at this time. Patient was seen in the ER last week, she has not yet picked up the iron supplement at this time. Review of her records show she has sickle cell trait does not have sickle cell disease. Onset: Today, Sudden - Related Data Allergies Allergy/AdvReac Type Severity Reaction Status Date / Time No Known Allergies Allergy Verified 02/02/18 12:59 Home Meds: Home Meds Lisinopril/Hydrochlorothiazide [Lisinopril-Hctz 20-25 mg Tab] 1 each PO DAILY # 30 tablet 01/04/18 [Rx] Pnv No.122/Iron/Folic Acid [ Multi Tablet] 1 tab PO DAILY 01/04/18 [ History] predniSONE [Prednisone] 20 mg PO DAILY #8 tablet 02/02/18 [Rx] Past Medical History HEENT History: Reports: Epistaxis, Other (See Below) Other HEENT History: dental abcess Cardiovascular History: Reports: Hypertension Respiratory History: Reports: Bronchitis, Recurrent Neurological History: Reports: Other (See Below) Other Neuro History: syncopal episodes Psychiatric History: Reports: Anxiety Hematologic History: Reports: Anemia, Blood Transfusion(s) Other Hematologic History: hx blood transfusions, states usually needs one yearly - Infectious Disease History Infectious Disease History: Reports: Chicken Pox - Past Surgical History GI Surgical History: Reports: Colonoscopy Social & Family History - Family History Family Medical History: Noncontributory - Tobacco Use Smoking Status *Q: Current Some Day Smoker Years of Tobacco use: 5 Packs/Tins Daily: 0.5 - Caffeine Use Caffeine Use: Reports: None - Recreational Drug Use Recreational Drug Use: No - Living Situation & Occupation Living situation: Reports: Single Occupation: Unemployed ED ROS ALLERGIC REACTION - Review of Systems Review Of Systems: See Below HEENT: Denies: Throat Pain, Throat Swelling Respiratory: Reports: Shortness of Breath Cardiovascular: Denies: Chest Pain Musculoskeletal: Reports: Joint Swelling (reports swelling in the bilateral hands) Skin: Reports: Pruritis, Other (denies any hives) Neurological: Reports: Numbness (bilateral hands and feet), Tingling (bilateral hands and feet) ED EXAM GENERAL NO PERIP PULSE - Physical Exam Exam: See Below Exam Limited By: No Limitations General Appearance: Alert, WD/WN, No Apparent Distress, Thin Eye Exam: Bilateral Eye: Normal Inspection Ears: Normal External Exam Nose: Normal Inspection Throat/Mouth: Normal Inspection, Normal Lips, Normal Oropharynx, Normal Voice, No Airway Compromise, Other (no uvula swelling) Respiratory/Chest: No Respiratory Distress, Lungs Clear, Normal Breath Sounds Cardiovascular: Normal Peripheral Pulses, Regular Rate, Rhythm, No Murmur Extremities: Normal Range of Motion, Normal Capillary Refill, Other (swelling to the bilateral hands most notable over the MCPs) Neurological: Alert, Oriented, Normal Cognition Psychiatric: Normal Affect, Normal Mood Skin Exam: Warm, Dry, Other (no hives appreciated). No: Ecchymosis, Erythema, Increased Warmth Course - Vital Signs Last Recorded V/S: Last Vital Signs Temp 98.6 F 02/02/18 12:52 Pulse 137 H 02/02/18 12:52 Resp 15 02/02/18 12:52 BP 116/74 02/02/18 12:52 Pulse Ox 98 02/02/18 12:52 - Orders/Labs/Meds Labs: Laboratory Tests 02/02/18 Range/Units 13:15 Sodium 136 (136-145) mEq/L Potassium 3.1 L (3.5-5.1) mEq/L Chloride 103 (98-107) mEq/L Carbon Dioxide 23 (21-32) mEq/L Anion Gap 13.1 (5-15) BUN 13 (7-18) mg/dL Creatinine 1.1 H (0.55-1.02) mg/dL Est Cr Clr Drug Dosing 55.56 mL/min Estimated GFR (MDRD) > 60 (>60) mL/min BUN/Creatinine Ratio 11.8 L (14-18) Glucose 138 H (74-106) mg/dL Calcium 9.1 (8.5-10.1) mg/dL Magnesium 1.9 (1.8-2.4) mg/dl Total Bilirubin 0.1 L (0.2-1.0) mg/dL AST 25 (15-37) U/L ALT 26 (14-59) U/L Alkaline Phosphatase 68 (46-116) U/L Total Protein 8.2 (6.4-8.2) g/dl Albumin 4.0 (3.4-5.0) g/dl Globulin 4.2 gm/dL Albumin/Globulin Ratio 1.0 (1-2) Meds: Medications Discontinued Medications Generic Name Dose Route Start Last Admin Trade Name Freq PRN Reason Stop Dose Admin Diphenhydramine HCl 50 mg 02/02/18 13:50 02/02/18 14:02 Benadryl IVPUSH 02/02/18 13:51 50 mg ONETIME ONE Administration Sodium Chloride 1,000 mls @ 999 mls/hr 02/02/18 13:52 02/02/18 14:01 Normal Saline IV 02/02/18 14:52 999 mls/hr ONETIME ONE Administration Ondansetron HCl 4 mg 02/02/18 14:20 02/02/18 14:28 Zofran IVPUSH 02/02/18 14:21 4 mg ONETIME ONE Administration Prednisone 40 mg 02/02/18 17:58 02/02/18 18:10 Prednisone PO 02/02/18 17:59 40 mg ONETIME ONE Administration Sodium Chloride 10 ml 02/02/18 13:50 02/02/18 14:05 Saline Flush FLUSH 10 ml ASDIRECTED PRN Administration Keep Vein Open - Re-Assessments/Exams Free Text/Narrative Re-Assessment/Exam: 02/02/18 15:30 Checked and the patient. She is sleeping at this time. 02/02/18 18:00 Checked on the patient. Reviewed the labs with her. I do feel she had a reaction to the iron infusion. Patient is resistant to this idea. She firmly believes the topical lidocaine caused the reaction. Will discharge home at this time. Recommend antihistamine and will prescribe prednison. Recommend elevating the hands to help with the swelling. Discharge instructions as documented. Departure - Departure Time of Disposition: 18:02 Disposition: Home, Self-Care 01 Condition: Fair Clinical Impression: Allergic reaction - Discharge Information *PRESCRIPTION DRUG MONITORING PROGRAM REVIEWED*: No *COPY OF PRESCRIPTION DRUG MONITORING REPORT IN PATIENT VALENCIA: No Prescriptions: predniSONE [Prednisone] 20 mg PO DAILY #8 tablet Instructions: Allergies, Adult, [id number] Referrals: Henrry Valdez PA [Primary Care Provider] - Forms: ED Department Discharge Additional Instructions: Take an antihistamine daily such as Claritin, Natividad Zyrtec. Take this for the next week. Prednisone as prescribed. 2 tabs or 40 mg daily for the next 5 days. Start your prescription tomorrow. Follow-up with Henrry in the clinic friday as planned. make Sure you are drinking plenty of fluids. Elevate you hand, above the level of your heart, to help with the swelling. Physician ER if your symptoms change or worsen.
[2018-02-02] MEDS ORDERED: predniSONE 20 MG Tab PO ONE (17:58)
== END 2018-02-02 18:24 | disposition home or self-care (01) ==
LOC: JD.ED 12:48
DX: M79.89 Other specified soft tissue disorders (principal); T50.905A Adverse effect of unspecified drugs, medicaments and biological substances, initial encounter; D50.9 Iron deficiency anemia, unspecified; I10 Essential (primary) hypertension; F17.210 Nicotine dependence, cigarettes, uncomplicated; Z79.899 Other long term (current) drug therapy
CPT/HCPCS: 36415; 80053; 83735; 94762; 96361; 96374; 96375; 99284; A9270; J1200; J2405; J7040; J7050

== ENCOUNTER 2018-05-06 08:39 | Emergency (ER) | payer MEDICAID ==
--- NOTE | 2018-05-06 18:53 | EDM.PDOC ---
ED HPI GENERAL MEDICAL PROBLEM - General Chief Complaint: Headache Stated Complaint: HEADACHE AND NOT SLEEPING X 2 DAYS Time Seen by Provider: 05/06/18 09:22 Source of Information: Reports: Patient, RN Notes Reviewed History Limitations: Reports: No Limitations - History of Present Illness INITIAL COMMENTS - FREE TEXT/NARRATIVE: The patient states that she has had a headache, throbbing sensation felt in her left oriental orthodox, on and off for the past 2 days. She has had difficulty sleeping secondary to the headache. She has had nausea, but no emesis. She had watery diarrhea last night. She reports photophobia, and possible phonophobia. No visual changes. No neurologic symptoms, such as tingling, numbness, or weakness. The patient has had similar headaches many times in the past. She believes that the last imaging study of her head was a CT scan about 4 months ago. The patient states that she took Tylenol recently. The patient's PCP is at [facility]. The patient did not receive an influenza vaccine this season. Headache Pain Score (Numeric/FACES): 8 - Related Data Allergies Allergy/AdvReac Type Severity Reaction Status Date / Time No Known Allergies Allergy Verified 05/06/18 09:07 Home Meds: Home Meds Pnv No.122/Iron/Folic Acid [ Multi Tablet] 1 tab PO DAILY 01/04/18 [ History] Past Medical History Cardiovascular History: Reports: Hypertension (untreated) Psychiatric History: Reports: Anxiety (untreated) Hematologic History: Reports: Anemia, Blood Transfusion(s) - Infectious Disease History Infectious Disease History: Reports: Chicken Pox - Past Surgical History GI Surgical History: Reports: Colonoscopy Social & Family History - Family History Family Medical History: Noncontributory - Tobacco Use Smoking Status *Q: Current Some Day Smoker Years of Tobacco use: 10 Packs/Tins Daily Comment: 1 pack/month - Caffeine Use Caffeine Use: Reports: Tea - Alcohol Use Alcohol Use History: Yes Alcohol Use Frequency: Socially - Recreational Drug Use Recreational Drug Use: No - Living Situation & Occupation Living situation: Reports: Single, with Family (6 kids, 1 grandchild) 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 - Physical Exam Exam: See Below Exam Limited By: No Limitations General Appearance: Alert, WD/WN, No Apparent Distress Eye Exam: Bilateral Eye: EOMI, Normal Inspection Ears: Normal External Exam, Normal Canal, Hearing Grossly Normal, Normal TMs Nose: Normal Inspection, Normal Mucosa, No Blood Throat/Mouth: Normal Inspection, Normal Lips, Normal Teeth, Normal Gums, Normal Oropharynx, Normal Voice, No Airway Compromise Head Exam: Atraumatic, Normocephalic Neck: Normal Inspection, Supple, Non-Tender, Full Range of Motion. No: Lymphadenopathy (L), Lymphadenopathy (R) Respiratory/Chest: No Respiratory Distress, Lungs Clear, Normal Breath Sounds, No Accessory Muscle Use Cardiovascular: Normal Peripheral Pulses, Regular Rate, Rhythm, No Edema, No Gallop, No JVD, No Murmur, No Rub GI/Abdominal: Normal Bowel Sounds, Soft, Non-Tender, No Organomegaly, No Distention, No Abnormal Bruit, No Mass (Female) Exam: Deferred Rectal (Female) Exam: Deferred Neuro Exam (Abbreviated): Alert, Oriented, CN II-XII Intact, Normal Cognition, No Motor/Sensory Deficits Back Exam: Normal Inspection, Full Range of Motion, NT Extremities: Normal Inspection, Normal Range of Motion, No Pedal Edema, Normal Capillary Refill Psychiatric: Normal Affect Skin Exam: Warm, Dry, Intact, Normal Color, No Rash Course - Vital Signs Last Recorded V/S: Last Vital Signs Temp 37.4 C 05/06/18 09:05 Pulse 78 05/06/18 09:05 Resp 16 05/06/18 09:05 BP 140/92 H 05/06/18 09:05 Pulse Ox 100 05/06/18 09:05 - Re-Assessments/Exams Free Text/Narrative Re-Assessment/Exam: 05/06/18 12:25 The plan had been to review the patient's prior medical records to see what has worked to treat her headaches in the past, however, I became engaged with two patients that were significantly ill, both requiring transfer, and the patient decided that she cannot wait any longer, and has left the ED. Departure - Departure Time of Disposition: 12:25 Disposition: Home, Self-Care 01 Condition: Good Clinical Impression: Nausea, Diarrhea Headache Qualifiers: Headache type: unspecified Headache chronicity pattern: acute headache Intractability: not intractable Qualified Code(s): R51 - Headache - Discharge Information *PRESCRIPTION DRUG MONITORING PROGRAM REVIEWED*: Not Applicable *COPY OF PRESCRIPTION DRUG MONITORING REPORT IN PATIENT VALENCIA: Not Applicable Referrals: Gladys Molina MD [Primary Care Provider] - Forms: ED Department Discharge
== END 2018-05-06 12:25 | disposition home or self-care (01) ==
LOC: JD.ED 08:39
DX: R51 Headache (principal); R11.0 Nausea; R19.7 Diarrhea, unspecified; I10 Essential (primary) hypertension; Z79.899 Other long term (current) drug therapy; F17.210 Nicotine dependence, cigarettes, uncomplicated
CPT/HCPCS: 99281; 99283

== ENCOUNTER 2019-03-03 15:39 | Emergency (ER) | payer MEDICAID ==
--- NOTE | 2019-03-03 16:21 | EDM.PDOC ---
<Tre Hall - Last Filed: 03/03/19 16:22> ED HPI GENERAL MEDICAL PROBLEM - General Chief Complaint: Allergic Reaction Stated Complaint: HAND SWELLING POST INJECTION Time Seen by Provider: 03/03/19 16:12 Source of Information: Reports: Patient History Limitations: Reports: No Limitations - History of Present Illness INITIAL COMMENTS - FREE TEXT/NARRATIVE: Patient is a 39 year old female with previous history of anemia requiring iron infusion who presents today with edema of left hand and forearm approximately 1- 1.5 hours following infusion in the volar aspect of the left wrist. The patient has previous received iron infusions without issues in [place] for approximately 20 years, however she typically received smaller infusions for approximately 6 weeks. She does report that she has received two infusions with [facility], and notes that at the previous appointment she did have some swelling of her feet that resolved. Patient can not recall which provider ordered her infusions. Upon questioning, she does report that her hemoglobin was low. Today , she denies any pain or itching, but does report swelling in her right hand, as well as swelling in her feet. She also reports some nausea, which is typical for her following an infusion. She denies other symptoms. - Related Data Allergies Allergy/AdvReac Type Severity Reaction Status Date / Time No Known Allergies Allergy Verified 03/03/19 15:58 Home Meds: Home Meds Pnv No.122/Iron/Folic Acid [ Multi Tablet] 1 tab PO DAILY 01/04/18 [ History] predniSONE 20 mg PO BID #6 tab 03/03/19 [Rx] ED ROS ALLERGIC REACTION - Review of Systems Review Of Systems: See Below Constitutional: Reports: No Symptoms HEENT: Reports: No Symptoms Respiratory: Reports: No Symptoms Cardiovascular: Reports: Edema (Of the bilateral hands, left worse than right and bilateral feet) GI/Abdominal: Reports: Nausea (Typical for the patient following iron infusion ) Musculoskeletal: Reports: Other (Swelling of the bilateral hands, left worse than right, and bilateral feet without purititis or pain) Skin: Reports: No Symptoms. Denies: Urticaria Neurological: Reports: No Symptoms ED EXAM GENERAL NO PERIP PULSE - Physical Exam Exam: See Below Exam Limited By: No Limitations General Appearance: Alert, WD/WN, No Apparent Distress Ears: Normal External Exam Nose: Normal Inspection Throat/Mouth: Normal Inspection, Normal Lips, Normal Teeth, Normal Voice, No Airway Compromise Head: Atraumatic Neck: Normal Inspection Respiratory/Chest: No Respiratory Distress, No Accessory Muscle Use Cardiovascular: Normal Peripheral Pulses, Regular Rate, Rhythm Extremities: Other (Appreciable edema of the left hand and forearm with associated warmth. Volar swelling of the left forearem. No noted skin changes, no signs of uticaria. No appreciable swelling of the right hand or bilateral feet. ) Neurological: Alert, Oriented Psychiatric: Normal Affect, Normal Mood Skin Exam: Warm, Dry, Intact, Normal Color, No Rash. No: Rash Course - Vital Signs Last Recorded V/S: Last Vital Signs Temp 36.7 C 03/03/19 15:55 Pulse 90 03/03/19 15:55 Resp 18 03/03/19 15:55 BP 142/94 H 03/03/19 15:55 Pulse Ox 98 03/03/19 15:55 - Orders/Labs/Meds Meds: Medications Discontinued Medications Generic Name Dose Route Start Last Admin Trade Name Freq PRN Reason Stop Dose Admin Diphenhydramine HCl 25 mg 03/03/19 16:15 03/03/19 16:32 Benadryl PO 03/03/19 16:16 25 mg ONETIME ONE Administration Famotidine 20 mg 03/03/19 16:15 03/03/19 16:32 Pepcid PO 03/03/19 16:16 20 mg ONETIME ONE Administration Prednisone 20 mg 03/03/19 16:14 03/03/19 16:32 Prednisone PO 03/03/19 16:15 20 mg ONETIME ONE Administration Departure - Departure Disposition: Home, Self-Care 01 Clinical Impression: Swelling of left hand - Discharge Information Prescriptions: predniSONE 20 mg PO BID #6 tab Instructions: Edema Referrals: Alena Navarro PA-C [Primary Care Provider] - Forms: ED Department Discharge Additional Instructions: Evaluation the emergency room today after having an iron dextran infusion volar aspect of your left wrist. Your bad iron dextran infusions many times in the past. Today you have developed significant swelling of the left forearm particularly in the volar aspect or palmar aspect as well as marked swelling of the entire left hand. You also subjectively feels swelling in your dorsal feet and right hand which we can't appreciate clinically yet. The question is whether or not the intravenous fluid and iron dextran infusion went interstitial. This means that the vein that the IV was placed in may have broken and the fluid simply ran into the soft tissues of your forearm and hand. This would've caused the significant amount of swelling in the left hand. You have no other signs of allergic response such as itching or hives development to suggest an allergic response. Iron dextran infusions could make bones and soft tissues hurt from the infusions. Would be my suggestion that next time you need an iron extremity infusion that you be premedicated with prednisone 20 mg by mouth and Benadryl 50 mg by mouth about an hour before the infusion is completed. Today he will be treated with prednisone 20 mg by mouth and Benadryl 25 mg by mouth in the ED as well as Pepcid 20 mg. Reveals any itching you may take Benadryl 25-50 mg every 6 hours in the next day or 2. Otherwise prednisone is to be taken 20 mg's with breakfast and supper for the next 3 days to bring any allergic reaction under control. If I am right and I think that the infusion fluid entered the soft tissues of your hand and arm swelling locally. Will gone within the next 24-36 hours.,the swelling should be gone within the next 24 to 36hrs. <Michael Quiroz - Last Filed: 03/03/19 17:33> ED HPI GENERAL MEDICAL PROBLEM - History of Present Illness Onset: Today Onset Date: 03/03/19 (Interim started at the end of her iron dextran infusion which was being infused through a small vein pole aspect of her left wrist.) Duration: Minutes: Location: Reports: Other (She presents with marked swelling of the dorsal aspect of her left hand and volar wrist fullness suggesting the IV probably infiltrated. There is no generalized itching or urticaria to suggest allergic response. She also is complaining of some solid subjective swelling in both dorsal feet and her right hand which is not appreciated clinically.) Quality: Reports: Ache, Throbbing Severity: Moderate Improves with: Reports: None Worsens with: Reports: Movement (Worsens with movement. Patient's left hand is very swollen dorsally and volarly and she is unable to make a fist.) Context: Reports: Other (Just finished a iron dextran infusion at the infusion clinic at [facility].). Denies: Activity, Exercise, Lifting, Sick Contact, Trauma Associated Symptoms: Reports: No Other Symptoms. 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.) Past Medical History HEENT History: Reports: Epistaxis, Other (See Below) Other HEENT History: dental abcess Cardiovascular History: Reports: Hypertension Respiratory History: Reports: Bronchitis, Recurrent Neurological History: Reports: Other (See Below) Other Neuro History: syncopal episodes Psychiatric History: Reports: Anxiety Hematologic History: Reports: Anemia, Blood Transfusion(s) Other Hematologic History: hx blood transfusions, states usually needs one yearly - Infectious Disease History Infectious Disease History: Reports: Chicken Pox - Past Surgical History GI Surgical History: Reports: Colonoscopy Social & Family History - Family History Family Medical History: Noncontributory - Tobacco Use Smoking Status *Q: Unknown Ever Smoked - Caffeine Use Caffeine Use: Reports: Tea - Living Situation & Occupation Living situation: Reports: Single, with Family (6 kids, 1 grandchild) 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 - Orders/Labs/Meds Meds: Medications Discontinued Medications Generic Name Dose Route Start Last Admin Trade Name Freq PRN Reason Stop Dose Admin Diphenhydramine HCl 25 mg 03/03/19 16:15 03/03/19 16:32 Benadryl PO 03/03/19 16:16 25 mg ONETIME ONE Administration Famotidine 20 mg 03/03/19 16:15 03/03/19 16:32 Pepcid PO 03/03/19 16:16 20 mg ONETIME ONE Administration Prednisone 20 mg 03/03/19 16:14 03/03/19 16:32 Prednisone PO 03/03/19 16:15 20 mg ONETIME ONE Administration - Radiology Interpretation Free Text/Narrative:: 39-year-old female presents to the ED with swelling left forearm and particularly dorsal and volar aspect of her left hand. Note she just completed an iron dextran infusion through a small vein on the volar aspect of her left wrist. To develop right at the end of the infusion or shortly thereafter. She also complains of some swelling of her right dorsal hand and both dorsal feet but there is no nothing appreciably swollen on clinical exam in this area. She is very concerned that she is developed an allergic reaction that she had similar type symptoms with swelling of her feet and hands after the last iron dextran infusion. She never had any positive iron dextran infusions well she was in [place] and this is her sixth or seventh infusion. She shows no signs or symptoms of allergic response such as rhinitis or urticaria. Denies any shortness of breath or wheezing. On inspection of her left hand it is definitely markedly swollen on the dorsal aspect and somewhat on the volar aspect and she is unable to make a fist. I have a clinical suspicion of left volar forearm thickening and fullness as well and strongly suspect that the IV infusion was interstitial. Therefore I think the current swelling is secondary to fluid in the soft tissues. She'll be treated conservatively with prednisone 20 mg twice a day for 3 days since the patient is very convinced that she has an allergic response. She was given Benadryl 25 mg by mouth in the ED with 20 prednisone 20 mg's by mouth and Pepcid 20 mg by mouth as well. My suggestion would be that she have her next iron dextran infusion and a much larger vein. Als she may require treatment with prednisone 20 mg by mouth and Benadryl 50 mg by mouth 1 hour prior to her next iron dextran infusion if so needed. Departure - Departure Time of Disposition: 16:16 Condition: Fair - Discharge Information *PRESCRIPTION DRUG MONITORING PROGRAM REVIEWED*: Not Applicable *COPY OF PRESCRIPTION DRUG MONITORING REPORT IN PATIENT VALENCIA: Not Applicable
[2019-03-03] MEDS: diphenhydrAMINE 25 MG Cap PO ONE (16:32)
[2019-03-03] MEDS: predniSONE 20 MG Tab PO ONE (16:32)
[2019-03-03] MEDS: Famotidine 20 MG Tab PO ONE (16:32)
== END 2019-03-03 16:52 | disposition home or self-care (01) ==
LOC: JD.ED 15:39
DX: T80.89XA Other complications following infusion, transfusion and therapeutic injection, initial encounter (principal); M79.89 Other specified soft tissue disorders
CPT/HCPCS: 99283; A9270

== ENCOUNTER 2019-09-21 12:05 | Emergency (ER) | payer MEDICAID ==
[2019-09-21] MEDS ORDERED: Metoclopramide 10 MG/2 ML SDV IM STA (12:55)
[2019-09-21] MEDS ORDERED: diphenhydrAMINE 25 MG Cap PO STA (12:56)
[2019-09-21] MEDS ORDERED: Ketorolac 60 MG/2 ML SDV IM STA (12:57)
--- NOTE | 2019-09-21 13:04 | EDM.PDOC ---
<Jigna Tee - Last Filed: 09/21/19 13:44> ED HPI GENERAL MEDICAL PROBLEM - General Chief Complaint: Headache Stated Complaint: HEADACHE Time Seen by Provider: 09/21/19 12:34 Source of Information: Reports: Patient History Limitations: Reports: No Limitations - History of Present Illness INITIAL COMMENTS - FREE TEXT/NARRATIVE: The patient presents with a left sided JUARES that started yesterday. She describes the pain as constant. She denies throbbing, pressure, or sharp stabbing pain. She denies photophobia. She has mild ponophobia. She is mild nauseated. No vomiting. She took Tylenol 14:00 and bedtimes yesterday, which eased the pain. She was unable to sleep last night and has not eaten today. She took Tylenol early this morning and at 10:00. At present she states her pain is relieved but it intermittent in nature. She has a history of migraines and this is like her previous JUARES. She reports he blood pressure medication was discontinued about 4 months ago. She is unsure why the medication was stopped. Her JUARES have been more frequent after the discontinuation of the med. She does not check her blood pressure at home and goes by how she feels to gauge her blood pressure. - Related Data Allergies Allergy/AdvReac Type Severity Reaction Status Date / Time No Known Allergies Allergy Verified 09/21/19 12:19 Home Meds: Home Meds No122/Iron/Folic Acid [ Multi Tablet] 1 tab PO DAILY 01/04/18 [ History] Past Medical History HEENT History: Reports: Epistaxis, Other (See Below) Other HEENT History: dental abcess Cardiovascular History: Reports: Heart Murmur, Hypertension Respiratory History: Reports: Bronchitis, Recurrent Neurological History: Reports: Other (See Below) Other Neuro History: syncopal episodes Psychiatric History: Reports: Anxiety Hematologic History: Reports: Anemia, Blood Transfusion(s) Other Hematologic History: hx blood transfusions, states usually needs one yearly - Infectious Disease History Infectious Disease History: Reports: Chicken Pox - Past Surgical History GI Surgical History: Reports: Colonoscopy Social & Family History - Family History Family Medical History: Noncontributory - Tobacco Use Smoking Status *Q: Never Smoker - Caffeine Use Caffeine Use: Reports: None - Living Situation & Occupation Living situation: Reports: Single, with Family (6 kids, 1 grandchild) 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 - Physical Exam Exam Limited By: Other (T: 98.2 P: 72 Resp: 16 B/P 151/104 SpO2 100%) General Appearance: Alert, WD/WN, No Apparent Distress Eye Exam: Bilateral Eye: Abnormal EOM, EOMI, PERRL Ears: Normal External Exam Nose: Normal Inspection Head Exam: Atraumatic, Normocephalic Neck: Normal Inspection, Supple, Non-Tender, Full Range of Motion Respiratory/Chest: No Respiratory Distress, Lungs Clear, Normal Breath Sounds, No Accessory Muscle Use, Chest Non-Tender Cardiovascular: Normal Peripheral Pulses, Regular Rate, Rhythm, No Edema, No Gallop, No JVD, No Murmur, No Rub GI/Abdominal: Normal Bowel Sounds, Soft, No Organomegaly, No Distention, No Abnormal Bruit, No Mass Back Exam: Normal Inspection, Full Range of Motion, NT Extremities: Normal Inspection, Normal Range of Motion, Non-Tender, No Pedal Edema, Normal Capillary Refill Psychiatric: Normal Affect, Normal Mood Skin Exam: Warm, Dry, Intact, Normal Color, No Rash Course - Vital Signs Last Recorded V/S: Last Vital Signs Temp 98.2 F 09/21/19 12:14 Pulse 72 09/21/19 12:14 Resp 16 09/21/19 12:14 BP 151/104 H 09/21/19 12:14 Pulse Ox 100 09/21/19 12:14 - Orders/Labs/Meds Meds: Medications Discontinued Medications Generic Name Dose Route Start Last Admin Trade Name Ilya PRN Reason Stop Dose Admin Diphenhydramine HCl 25 mg 09/21/19 12:56 09/21/19 13:09 Benadryl PO 09/21/19 12:57 25 mg ONETIME STA Administration Ketorolac Tromethamine 60 mg 09/21/19 12:57 09/21/19 13:12 Toradol IM 09/21/19 12:58 60 mg ONETIME STA Administration Metoclopramide HCl 10 mg 09/21/19 12:55 09/21/19 13:11 Reglan IM 09/21/19 12:56 10 mg ONETIME STA Administration - Re-Assessments/Exams Free Text/Narrative Re-Assessment/Exam: 09/21/19 13:11 The patient presents with a left sided JUARES that started yesterday. She describes the pain as constant. She denies throbbing, pressure, or sharp stabbing pain. She denies photophobia. She has mild ponophobia. She is mild nauseated. No vomiting. She has a history of migraines and this is like her previous JUARES. She reports he blood pressure medication was discontinued about 4 months ago. She is unsure why the medication was stopped. Her JUARES have been more frequent after the discontinuation of the med. She does not check her blood pressure at home and goes by how she feels to gauge her blood pressure. We will give her Reglan 10mg IM, Benadryl 25mg oral, and Toradol 60mg IM. We will discuss the need for appropriate follow up in regards to her blood pressure needs. 09/21/19 13:38 The patient states he JUARES is much better and is ready to go home. Advised and educated patient on need to obtain a blood pressure home machine and the appropriate method to take her blood pressure. She was advised to follow up with a PCP for her blood pressure. Departure - Departure Disposition: Home, Self-Care 01 Clinical Impression: Headache Qualifiers: Headache type: unspecified Headache chronicity pattern: acute headache Intractability: not intractable Qualified Code(s): R51 - Headache - Discharge Information Referrals: PCP,None [Primary Care Provider] - Forms: ED Department Discharge Additional Instructions: Rest. You have been given multiple meds to help treat your headache today. Get a blood pressure unit so you can check your blood pressure at home 2 or 3 times daily to get a better of what your blood pressure is running. Keep a record of that to bring to your medical provider for follow up. Call [facility] to see a provider in 10 to 14 days. Bring the record of your home blood pressures for that appointment. Return to ED as needed if symptoms worsening in any way. Sepsis Event Note - Evaluation Sepsis Screening Result: No Definite Risk - Focused Exam Vital Signs: Vital Signs Temp Pulse Resp BP Pulse Ox 09/21/19 12:14 98.2 F 72 16 151/104 H 100 Date Exam was Performed: 09/21/19 Time Exam was Performed: 13:44 <Bertram Mas - Last Filed: 09/21/19 13:51> ED ROS GENERAL - Review of Systems Review Of Systems: See Below Constitutional: Denies: Fever, Chills Neurological: Denies: Numbness, Tingling, Weakness - Physical Exam Exam: See Below Course - Re-Assessments/Exams Free Text/Narrative Re-Assessment/Exam: 09/21/19 13:50 Initial hx and exam was done by [employer] student. I agree with hx and exam as documented. I have also interviewed and examined patient. She feels much better at time of discharge. Discharges instr. as documented. Departure - Departure Time of Disposition: 13:38 Condition: Fair Sepsis Event Note - Focused Exam Date Exam was Performed: 09/21/19 Time Exam was Performed: 13:47
== END 2019-09-21 14:05 | disposition home or self-care (01) ==
LOC: JD.ED 12:05
DX: R51 Headache (principal); F41.9 Anxiety disorder, unspecified; Z79.899 Other long term (current) drug therapy
CPT/HCPCS: 96372; 99283; A9270; J1885; J2765; 99282

== ENCOUNTER 2019-12-19 20:44 | Emergency (ER) | payer MEDICAID ==
[2019-12-19] MEDS ORDERED: Metoclopramide 10 MG/2 ML SDV IVPUSH ONE (20:58)
[2019-12-19] MEDS ORDERED: Sodium Chloride 0.9% 1,000 ML IV ONE (20:58)
[2019-12-19] MEDS ORDERED: Ketorolac 30 MG/ML SDV IVPUSH ONE (20:58)
[2019-12-19] MEDS ORDERED: Sodium Chloride 0.9% 10 ML Syringe FLUSH PRN (20:58)
--- NOTE | 2019-12-19 21:08 | EDM.PDOC ---
ED HPI GENERAL MEDICAL PROBLEM - General Chief Complaint: Abdominal Pain Stated Complaint: VOMITING DIARRHEA HEADACHE Time Seen by Provider: 12/19/19 20:55 Source of Information: Reports: Patient, RN Notes Reviewed History Limitations: Reports: No Limitations - History of Present Illness INITIAL COMMENTS - FREE TEXT/NARRATIVE: Patient is a 39-year-old female who presents to the ED for evaluation of her nausea/vomiting/diarrhea. Patient notes for the last 3 days, she has been having issues with nausea vomiting and diarrhea. She notes that she is got a resultant headache from all of the vomiting. She also states that she is gets headaches when her blood pressure is a little bit elevated. At time of triage is 145/111. She states she has been off of her blood pressure medications per her primary care provider's recommendation for a few months. She does note that her daughter has been sick with diarrhea at home. She is in between primary care providers, but does go to the [facility] for health management. She is not taking any medications for relief of symptoms at home. She is not complaining of any fevers, chills, cough, shortness of breath. She is not complaining of any abdomen pain. - Related Data Allergies Allergy/AdvReac Type Severity Reaction Status Date / Time No Known Allergies Allergy Verified 12/19/19 20:56 Home Meds: Home Meds Cefdinir [Omnicef] 300 mg PO BID 5 Days #10 cap 12/19/19 [Rx] Ondansetron [Zofran ODT] 4 mg PO Q8H PRN #12 tab.dis 12/19/19 [Rx] Past Medical History HEENT History: Reports: Epistaxis, Other (See Below) Other HEENT History: dental abcess Cardiovascular History: Reports: Heart Murmur, Hypertension Respiratory History: Reports: Bronchitis, Recurrent Neurological History: Reports: Migraines, Other (See Below) Other Neuro History: syncopal episodes Psychiatric History: Reports: Anxiety Hematologic History: Reports: Anemia, Blood Transfusion(s) Other Hematologic History: hx blood transfusions, states usually needs one yearly - Infectious Disease History Infectious Disease History: Reports: Chicken Pox - Past Surgical History GI Surgical History: Reports: Colonoscopy Social & Family History - Family History Family Medical History: Noncontributory - Tobacco Use Smoking Status *Q: Never Smoker Second Hand Smoke Exposure: No - Caffeine Use Caffeine Use: Reports: Coffee - Recreational Drug Use Recreational Drug Use: No - Living Situation & Occupation Living situation: Reports: Single, with Family (6 kids, 1 grandchild) 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 ED EXAM, GI/ABD - Physical Exam Exam: See Below Exam Limited By: No Limitations General Appearance: Alert, WD/WN, No Apparent Distress Throat/Mouth: Normal Inspection, Normal Lips, Normal Teeth, Normal Gums, Normal Oropharynx (mildly dry), Normal Voice, No Airway Compromise Head: Atraumatic, Normocephalic Neck: Normal Inspection Respiratory/Chest: No Respiratory Distress, Lungs Clear, Normal Breath Sounds, No Accessory Muscle Use, Chest Non-Tender Cardiovascular: Normal Peripheral Pulses, Regular Rate, Rhythm, No Murmur GI/Abdominal Exam: Normal Bowel Sounds, Soft, Non-Tender, No Distention, No Mass Extremities: Normal Inspection, Normal Capillary Refill Neurological: Alert, Oriented, Normal Cognition, No Motor/Sensory Deficits Psychiatric: Normal Affect, Normal Mood Skin Exam: Warm, Dry, Intact, Normal Color, No Rash Course - Vital Signs Last Recorded V/S: Last Vital Signs Temp 98.6 F 12/19/19 20:53 Pulse 72 12/19/19 20:53 Resp 20 12/19/19 20:53 BP 145/111 H 12/19/19 20:53 Pulse Ox 100 12/19/19 20:53 - Orders/Labs/Meds Orders: Active Orders 24 hr Category Date Time Status Peripheral IV Care [RC] . DIRECTED Care 12/19/19 20:58 Ordered CULTURE URINE [RM] Routine Lab 12/19/19 22:11 Ordered Sodium Chloride 0.9% [Saline Flush] Med 12/19/19 20:58 Ordered 10 ml FLUSH ASDIRECTED PRN Peripheral IV Insertion Adult [OM.PC] Routine Oth 12/19/19 20:57 Ordered Medication Orders Sodium Chloride (Saline Flush) 10 ml FLUSH ASDIRECTED PRN PRN Reason: Keep Vein Open Last Admin: 12/19/19 21:08 Dose: 10 ml Documented by: PAOLA Labs: Laboratory Tests 12/19/19 12/19/19 12/19/19 Range/Units 21:05 21:05 21:06 WBC 3.60 L (3.98-10.04) K/mm3 RBC 4.06 (3.98-5.22) M/mm3 Hgb 8.3 L (11.2-15.7) gm/dl Hct 28.5 L (34.1-44.9) % MCV 70.2 L D (79.4-94.8) fl MCH 20.4 L (25.6-32.2) pg MCHC 29.1 L (32.2-35.5) g/dl RDW Std Deviation 53.2 H (36.4-46.3) fL Plt Count 346 (182-369) K/mm3 MPV 9.8 (9.4-12.3) fl Neut % (Auto) 42.8 (34.0-71.1) % Lymph % (Auto) 41.4 (19.3-51.7) % [place] % (Auto) 13.3 H (4.7-12.5) % Eos % (Auto) 1.4 (0.7-5.8) Baso % (Auto) 0.8 (0.1-1.2) % Neut # (Auto) 1.54 L (1.56-6.13) K/mm3 Lymph # (Auto) 1.49 (1.18-3.74) K/mm3 [place] # (Auto) 0.48 H (0.24-0.36) K/mm3 Eos # (Auto) 0.05 (0.04-0.36) K/mm3 Baso # (Auto) 0.03 (0.01-0.08) K/mm3 Manual Slide Review Abnormal smear Sodium 137 (136-145) mEq/L Potassium 3.1 L (3.5-5.1) mEq/L Chloride 103 (98-107) mEq/L Carbon Dioxide 27 (21-32) mEq/L Anion Gap 10.1 (5-15) BUN 8 (7-18) mg/dL Creatinine 0.9 (0.55-1.02) mg/dL Est Cr Clr Drug Dosing 61.85 mL/min Estimated GFR (MDRD) > 60 (>60) mL/min BUN/Creatinine Ratio 8.9 L (14-18) Glucose 112 H (74-106) mg/dL Calcium 8.7 (8.5-10.1) mg/dL Magnesium 1.9 (1.8-2.4) mg/dl Total Bilirubin 0.2 (0.2-1.0) mg/dL AST 18 (15-37) U/L ALT 21 (14-59) U/L Alkaline Phosphatase 56 (46-116) U/L Total Protein 8.0 (6.4-8.2) g/dl Albumin 4.0 (3.4-5.0) g/dl Globulin 4.0 gm/dL Albumin/Globulin Ratio 1.0 (1-2) Urine Color Yellow (Yellow) Urine Appearance Clear (Clear) Urine pH 7.5 (5.0-8.0) Ur Specific [place] 1.025 (1.005-1.030) Urine Protein 1+ H (Negative) Urine Glucose (UA) Negative (Negative) Urine Ketones Negative (Negative) Urine Occult Blood Negative (Negative) Urine Nitrite Negative (Negative) Urine Bilirubin Negative (Negative) Urine Urobilinogen 0.2 (0.2-1.0) Ur Leukocyte Esterase 1+ H (Negative) Urine RBC 0-5 (0-5) /hpf Urine WBC 20-30 H (0-5) /hpf Ur Squamous Epith Cells 10-20 H (0-5) /hpf Urine Bacteria Many H (FEW) /hpf Urine Mucus Moderate H (FEW) /hpf Meds: Medications Generic Name Dose Route Start Last Admin Trade Name Ilya PRN Reason Stop Dose Admin Sodium Chloride 10 ml 12/19/19 20:58 12/19/19 21:08 Saline Flush FLUSH 10 ml ASDIRECTED PRN Administration Keep Vein Open Discontinued Medications Generic Name Dose Route Start Last Admin Trade Name Ilya PRN Reason Stop Dose Admin Cefdinir 300 mg 12/19/19 22:14 Omnicef PO 12/19/19 22:15 ONETIME ONE Sodium Chloride 1,000 mls @ 999 mls/hr 12/19/19 20:58 12/19/19 21:07 Normal Saline IV 12/19/19 21:58 999 mls/hr ONETIME ONE Administration Ketorolac Tromethamine 30 mg 12/19/19 20:58 12/19/19 21:07 Toradol IVPUSH 12/19/19 20:59 30 mg ONETIME ONE Administration Metoclopramide HCl 10 mg 12/19/19 20:58 12/19/19 21:07 Reglan IVPUSH 12/19/19 20:59 10 mg ONETIME ONE Administration Potassium Chloride 40 meq 12/19/19 22:15 Klor-Con M20 PO 12/19/19 22:16 ONETIME ONE - Re-Assessments/Exams Free Text/Narrative Re-Assessment/Exam: 12/19/19 21:07 Patient presents to the ED for the evaluation of her nausea vomiting and diarrhea for the past 3 days. Basic labs will be obtained, IV fluids, along with 10 mg Reglan, and 30 mg IV Toradol for headache and nausea management. 12/19/19 22:13 Patient's laboratory evaluation demonstrates a white blood cell count that is low at 3.6, hemoglobin also mildly low at 8.3. She has a history of anemia, so this is not uncommon. I will have her follow-up with her primary care provider for the possibility of iron transfusions. The potassium is mildly low at 3.1. Patient does seem to have a UTI. 1+ leukocyte esterase, 20-30 WBC /hpf, many urine bacteria and moderate urine mucus. Departure - Departure Time of Disposition: 22:20 Disposition: Home, Self-Care 01 Condition: Good Clinical Impression: Gastroenteritis UTI (urinary tract infection) Qualifiers: Urinary tract infection type: acute cystitis Hematuria presence: without hematuria Qualified Code(s): N30.00 - Acute cystitis without hematuria - Discharge Information *PRESCRIPTION DRUG MONITORING PROGRAM REVIEWED*: No *COPY OF PRESCRIPTION DRUG MONITORING REPORT IN PATIENT VALENCIA: No Prescriptions: Cefdinir [Omnicef] 300 mg PO BID 5 Days #10 cap Ondansetron [Zofran ODT] 4 mg PO Q8H PRN #12 tab.dis PRN Reason: Nausea Instructions: Urinary Tract Infection, Adult, [id number], Viral Gastroenteritis, Adult, [id number] Referrals: PCP,None [Primary Care Provider] - Forms: ED Department Discharge Additional Instructions: You have been evaluated in the ED for your nausea/vomiting/diarrhea. Your urinalysis was consistent with an acute urinary tract infection. Your urine was sent for culture, and you will be notified if you should need a change in your antibiotic. This may take up to 48 hours to result. You have been given a prescription for Omnicef, 300 mg 1 tablet 2 times a day for 5 days. This has been electronically sent to the [facility] pharmacy located near [facility]. You also likely have a viral gastroenteritis due to your nausea/vomiting/diarrhea. You were given a prescription for Zofran for nausea management, please try to stick to clear liquid fluids over the next 24 to 48 hours, advance to bland diet as tolerated. Please increase your oral fluid intake and try to stay adequately hydrated. Your hemoglobin was mildly low, you do have a history of anemia however. I will recommend that you follow-up with your primary care provider at [facility] for further evaluation and for the possible need of iron transfusions. Please return to the ED if your symptoms change or worsen. Sepsis Event Note (ED) - Evaluation Sepsis Screening Result: No Definite Risk - Focused Exam Vital Signs: Vital Signs Temp Pulse Resp BP Pulse Ox 12/19/19 20:53 98.6 F 72 20 145/111 H 100 - My Orders Last 24 Hours: My Active Orders 12/19/19 20:57 Peripheral IV Insertion Adult [OM.PC] Routine 12/19/19 20:58 Peripheral IV Care [RC] . DIRECTED Sodium Chloride 0.9% [Saline Flush] 10 ml FLUSH ASDIRECTED PRN 12/19/19 22:11 CULTURE URINE [RM] Routine - Assessment/Plan Last 24 Hours: My Active Orders 12/19/19 20:57 Peripheral IV Insertion Adult [OM.PC] Routine 12/19/19 20:58 Peripheral IV Care [RC] . DIRECTED Sodium Chloride 0.9% [Saline Flush] 10 ml FLUSH ASDIRECTED PRN 12/19/19 22:11 CULTURE URINE [RM] Routine
[2019-12-19] MEDS ORDERED: Cefdinir 300 MG Cap PO ONE (22:14)
[2019-12-19] MEDS ORDERED: Potassium Chloride 20 MEQ Tab.ER PO ONE (22:15)
== END 2019-12-19 22:40 | disposition home or self-care (01) ==
LOC: JD.ED 20:44
DX: K52.9 Noninfective gastroenteritis and colitis, unspecified (principal); N30.00 Acute cystitis without hematuria; I10 Essential (primary) hypertension
CPT/HCPCS: 36415; 80053; 81001; 83735; 85025; 87086; 87088; 87186; 96361; 96374; 96375; 99284; A9270; J1885; J2765; J7030; 99283